=== PATIENT | female | born 1985 | race Caucasian/White ===

== ENCOUNTER 2018-12-23 20:02 | Emergency (ER) | payer OTHER, SELFPAY ==
[2018-12-23 20:03] VITALS: BP 130/85; PULSE 72; RESP 14; TEMP 36.8; O2SAT 99; BMI 29.4
--- NOTE | 2018-12-23 20:13 | ED.DCSUM_ITS ---
- ER Visit Summary Date of Service: 12/23/18 Chief Complaint: Tooth pain History of Present Illness: The patient is a 33 F who presents with tooth pain. Is been ongoing for the past month. She has a broken left lower molar and is scheduled to have it removed next week. She tried Motrin and Tylenol and heat packs without any relief. Has not been on any antibiotics. Denies fevers. Physical Examination: Vital signs reviewed. She has widespread dental decay. She has tenderness at tooth #18. There is no gingival abscess Test Results: None performed Emergency Department Course and Treatment: Patient will be given naproxen and penicillin. I will give her the same for home. She will follow-up on Friday with her dentist Treatment Plan: [] Disposition: Discharge Impression: Odontalgia This note was generated with [employer] dictation software. It may contain incorrect words, spelling, and punctuation that were not noted in review of the chart prior to signing ED Disposition - Plan for ED Patient: Referrals: NOT,DEFINED [Primary Care Provider] -
--- NOTE | 2018-12-23 20:16 | ED.DEP ---
ED Disposition - Plan for ED Patient: Disposition: Home or Assisted Living Instructions: Dental Pain Prescriptions: Naproxen [Naprosyn] 500 mg PO BID #20 tab Prescription Printed Penicillin V Potassium 500 mg PO 4X/DAY #28 tab Prescription Printed Referrals: NOT,DEFINED [Primary Care Provider] -
[2018-12-23] MEDS: Naproxen 500 MG Tablet PO (20:37)
[2018-12-23] MEDS: Penicillin Vk 250 MG Tablet 500 MG PO (20:37)
== END 2018-12-23 20:42 | disposition home or self-care (01) ==
LOC: ED 20:33
PROVIDERS: Emergency Provider Emergency Medicine; Family Provider Preventive Medicine Occupational Medicine; PCP Preventive Medicine Occupational Medicine
DX: S02.5XXA Fracture of tooth (traumatic), initial encounter for closed fracture (principal); X58.XXXA Exposure to other specified factors, initial encounter; K02.9 Dental caries, unspecified
CPT/HCPCS: 99283

== ENCOUNTER 2020-04-24 04:25 | Emergency (ER) | payer OTHER, SELFPAY ==
[2020-04-24 04:29] VITALS: BP 123/77; PULSE 87; RESP 16; TEMP 36.9; O2SAT 98; BMI 31.4
--- NOTE | 2020-04-24 04:37 | RAD_ITS ---
STUDY: X-RAY - LEFT ANKLE REASON FOR EXAM: Female, 34 years old. Posterior ankle pain after rolling ankle. TECHNIQUE: 3 view(s) of the ankle. COMPARISON: None. FINDINGS: Normal visualized distal tibia and fibula. Normal medial and lateral malleoli. Normal tibiotalar articulation and ankle mortise. Normal visualized talus and calcaneus. The visualized subtalar, talonavicular, calcaneocuboid and tarsal articulations are normal. The soft tissue structures are unremarkable. RAD/Ankle min 3 Views IMPRESSION: Normal x-ray examination of the ankle. Electronically Signed: Carlos Fontenot MD at 5:16 EST , Service support ,
--- NOTE | 2020-04-24 05:22 | ED.VISSUMM ---
- ER Visit Summary Date of Service: 04/24/20 Chief Complaint: [Injury to left ankle] History of Present Illness: The patient is a 34 F [presents to the emergency department with an injury to the left ankle that occurred around 3 AM. Patient was at work when she tripped over a pallet causing her to roll her ankle. She did not actually fall. Patient now having a hard time bearing weight secondary to pain. Patient states that she has fractured that ankle in the past. She denies any other injuries.] Physical Examination: [HEENT-PERRLA, EOMI. Cranial nerves II through XII grossly intact. TMs clear. Mucous membranes moist. No adenopathy. Cardiovascular-regular rate and rhythm without murmur or ectopy Lungs-clear to auscultation, chest wall stable without crepitus or subcu emphysema Abdomen-normoactive bowel sounds, soft, nontender, no rebound or rigidity, no peritoneal signs. Extremities-intact ?4, normal range of motion, normal pulses. Left ankle-no significant soft tissue swelling, ecchymosis or bruising noted. Patient does have some diffuse tenderness palpation over the posterior portion of the ankle as well as some medial and lateral malleolus discomfort. No obvious deformity. She is neurovascular intact distally. No pain at the proximal fibular head or base of the fifth metatarsal.] Test Results: [Rays of the left ankle were normal] Emergency Department Course and Treatment: [She was given an air splint. Patient refused crutches. Patient states she has access to crutches at home.] Treatment Plan: [Patient advised to ice and elevate the extremity. Patient to use ibuprofen or Tylenol for discomfort. Patient will be given work restrictions.] Disposition: [Discharged home in stable condition] Impression: [Left ankle sprain] This note was generated with [employer] dictation software. It may contain incorrect words, spelling, and punctuation that were not noted in review of the chart prior to signing ED Disposition - Plan for ED Patient: Referrals: Nahum Romero DO [Primary Care Provider] -
--- NOTE | 2020-04-24 05:24 | DCINST.ED_ITS ---
ED Disposition - Plan for ED Patient: Instructions: ED Sprain Ankle W X Ray Referrals: Nahum Romero DO [Primary Care Provider] - [facility] [place] [GROUP OF PHYSICIANS] - 5-7 Days
--- NOTE | 2020-04-24 05:24 | ED.DEP ---
ED Disposition - Plan for ED Patient: Instructions: ED Sprain Ankle W X Ray Referrals: Nahum Romero DO [Primary Care Provider] - [facility] [GROUP OF PHYSICIANS] - 5-7 Days
[2020-04-24 05:39] VITALS: BP 122/95; PULSE 68; RESP 15; O2SAT 99
== END 2020-04-24 05:40 | disposition home or self-care (01) ==
LOC: ED 05:04
PROVIDERS: Emergency Provider Emergency Medicine; PCP Preventive Medicine Occupational Medicine
DX: S93.402A Sprain of unspecified ligament of left ankle, initial encounter (principal); W18.40XA Slipping, tripping and stumbling without falling, unspecified, initial encounter
CPT/HCPCS: 73610; 99283

== ENCOUNTER → 2021-04-09 12:48 | Outpatient (CLI) | payer OTHER, SELFPAY | PROVIDERS: PCP Preventive Medicine Occupational Medicine; Referring Provider Preventive Medicine Occupational Medicine; Visit Provider Preventive Medicine Occupational Medicine | DX: Z01.84 Encounter for antibody response examination (principal) | CPT/HCPCS: 36415; 86769 ==

== ENCOUNTER 2024-03-09 18:17 | Emergency (ER) | payer OTHER, SELFPAY ==
[2024-03-09 18:17] VITALS: BP 121/88; PULSE 79; RESP 16; TEMP 36.6; O2SAT 100; BMI 32.6
--- NOTE | 2024-03-09 18:33 | ED.VIS.DENTA ---
HPI History of Present Illness Chief Complaint: Dental Detail of Chief Complaint: Dental pain Informant: patient Narrative Narrative: Patient presents to the emergency department complaint of dental pain that started today. Patient states that she has a broken and cracked right lower molar that is been cracked for a couple of months. Today she drank some cold water and had sudden onset of severe pain. She denies fevers chills or sweats. Patient states that she has severe fear of going to the dentist but does have a dentist and she called and left a message with them. PFSH PFSH Home Medications ?Medication ?Instructions ?Recorded ?Last Taken ?Type cetirizine 10 mg tablet 10 mg PO DAILY 04/24/20 Unknown History multivitamin 1 ea PO DAILY 04/24/20 Unknown History clindamycin HCl 300 mg capsule 300 mg PO Q6H #40 CAPSULES 03/09/24 Unknown Rx (Cleocin HCl) hydrocodone-acetaminophen 5-325mg 1 tab PO Q4H PRN PRN Pain 2 days 03/09/24 Unknown Rx 5mg-325mg #14 TABLETS Allergy/AdvReac Type Severity Reaction Status Date / Time egg Allergy Anaphylaxis Verified 03/09/24 18:29 shellfish derived Allergy Anaphylaxis Verified 03/09/24 18:29 Social History Smoking Status: Never smoker ROS ROS ED Review of Systems ROS Unobtainable: other Constitutional Constitutional ED: Reports lethargy; Denies chills, fever(s), sweats or weight loss Eyes Eyes: Denies blurry vision, change in vision or diplopia ENT ENT ED: Reports other Details: Dental pain ; Denies rhinorrhea or sore throat Cardiovascular Cardiovascular: Denies chest pain, orthopnea or racing heartbeat Respiratory/Chest Respiratory/Chest: Denies cough, dyspnea, dyspnea on exertion, orthopnea or sputum Gastrointestinal Gastrointestinal: Denies abdominal pain, diarrhea, nausea or vomiting Genitourinary Genitourinary ED: Denies dysuria, hematuria or urinary frequency Musculoskeletal Musculoskeletal: Denies arthralgias, back pain, myalgias or neck pain Integumentary Denies abscess, Abrasions or rash Neurologic Neurologic: Denies headache(s) or weakness Psychiatric Psychiatric: Denies anxiety, depression or suicidal thoughts Endocrine Endocrinology: Denies polydipsia, polyphagia or polyuria Hematologic/Lymphatic Hematologic/Lymphatic: Denies easy bleeding, easy bruising or lymphadenopathy Allergic/Immunologic Allergic/Immunologic ED: Denies mouth swelling, tongue swelling or urticaria EXAM Physical Exam Const Vital Signs: 03/09/24 18:17 Temperature 97.9 F Temperature Source Oral Pulse Rate 79 Respiratory Rate 16 Blood Pressure 121/88 H Blood Pressure Mean 99 Pulse Ox 100 Oxygen Delivery Method Room Air Positive well nourished and well developed General Appearance ED: well developed and NAD HEENT Reports TM's clear and moist mucous membranes HEENT Narrative: Dentition-patient has a broken and carried right lower molar tooth #31. No gingival erythema or abscess formation noted. Uvula midline without trismus. No facial cellulitis. normocephalic and atraumatic; Negative for trauma or tenderness Tympanic Membrane ED: Yes TM's clear Eyes PERRL and EOMs intact bilaterally General Eye ED: Negative for pale conjunctiva or scleral icterus Neck no lymphadenopathy, supple and no JVD General: Negative for tenderness Chest Wall inspection of chest normal and palpation of chest normal Chest: Negative for tenderness Resp normal respiratory effort and clear to auscultation bilaterally Effort and Inspection: Negative for respiratory distress or pain with movement Auscultation: Negative for rhonchi, wheezes or diminished lung sounds Cardio regular rate, regular rhythm, S1 normal heart sound, S2 normal heart sound and no murmurs Peripheral Pulses: pulses 2+ throughout GI normal to inspection, nondistended, normoactive bowel sounds, soft to palpation, non-tender, non-distended and no masses Back/Spine no CVA tenderness and no thoracic nor lumbar tenderness Extremity normal to inspection General Extremety ED: Negative for edema General Extremity: Negative for edema Neuro oriented x3, CN's II-XII intact bilaterally, no sensory deficits noted and gait normal Sensorium / Orientation: awake, alert, oriented to person, oriented to place and oriented to time Motor Exam: strength 5/5 throughout and strength abnormal Psych mental status grossly normal Skin no rashes or lesions noted and no wounds MDM MDM MDM Narrative Medical decision making narrative: Patient with dental pain with a broken and carried right lower molar #31. Patient will be started on clindamycin and given [place] for pain and referral to dentist. Advised return if increasing pain, fever, facial redness or swelling, or condition worsening way. Discharge Plan Triage Chief Complaint: Dental ED Provider: Julia Julio Dx/Rx/DC Orders Clinical Impression: Pain, dental Instructions: ED Dental Pain, ED Dental Cavity Prescriptions: New clindamycin HCl [Cleocin HCl] 300 mg capsule 300 mg PO Q6H Qty: 40 0RF hydrocodone-acetaminophen 5-325 mg tablet 1 tab PO Q4H PRN PRN (Reason: Pain) 2 Days Qty: 14 0RF No Action multivitamin 1 EACH tablet 1 ea PO DAILY cetirizine 10 MG tablet 10 mg PO DAILY Primary Care Provider: Nahum Romero Referrals: Nahum Romero DO [Primary Care Provider] - Activity Restrictions/Additional Instructions: <del>See</del> <del>a</del> <del>dentist</del> <del>at</del> <del>the</del> <del>earliest</del> <del>possible</del> <del>time</del> Print Language: Panamanian Disposition Disposition: Home, Self Care
[2024-03-09 18:42] VITALS: BP 136/88; PULSE 88; RESP 18; TEMP 36.9; O2SAT 97
== END 2024-03-09 19:24 | disposition home or self-care (01) ==
LOC: ED 18:54
PROVIDERS: Emergency Provider Emergency Medicine; PCP Preventive Medicine Occupational Medicine; Visit Provider Emergency Medicine
DX: K08.89 Other specified disorders of teeth and supporting structures (principal)
CPT/HCPCS: 99282